=== PATIENT | female | born 1980 | race African-American/Black ===

== ENCOUNTER 2018-03-25 01:03 | Emergency (ER) | payer SELFPAY ==
[~2018-03-25] VITALS: Ht 160 cm; Wt 55.0 kg
[~2018-03-25 01:03] MED LIST: IBUP-1636
[2018-03-25 01:16] VITALS: BP 129/80
== END 2018-03-25 03:30 | disposition left against medical advice (07) ==
LOC: ER 01:46
DX: Z53.21 Procedure and treatment not carried out due to patient leaving prior to being seen by health care provider (principal)

== ENCOUNTER 2021-03-29 02:35 | Emergency (ER) | payer SELFPAY ==
[~2021-03-29] VITALS: Ht 160 cm; Wt 71.0 kg
[2021-03-29 05:05] LABS: *AMPHETAMINES SCREEN URINE NEGATIVE (NEGATIVE)
[2021-03-29 05:06] LABS: *BARBITURATES SCREEN URINE NEGATIVE (NEGATIVE); *BENZODIAZEPINES SCREEN URINE NEGATIVE (NEGATIVE); METHADONE URINE SCREEN NEGATIVE (NEGATIVE); OPIATES URINE SCREEN NEGATIVE (NEGATIVE); PHENCYCLIDINE URINE SCREEN NEGATIVE (NEGATIVE)
[2021-03-29 05:13] LABS: *COCAINE SCREEN URINE PRESUMTIVE POSITIVE (NEGATIVE); CANNABINOID URINE SCREEN PRESUMTIVE POSITIVE (NEGATIVE)
[2021-03-29 08:01] VITALS: BP 125/89
== END 2021-03-29 09:04 | disposition home or self-care (01) ==
LOC: ER 02:35
DX: F14.10 Cocaine abuse, uncomplicated (principal); F12.10 Cannabis abuse, uncomplicated; F15.10 Other stimulant abuse, uncomplicated; J45.909 Unspecified asthma, uncomplicated; R41.82 Altered mental status, unspecified; Z98.890 Other specified postprocedural states
CPT/HCPCS: 80305; 99283

== ENCOUNTER 2021-04-18 16:23 | Emergency (ER) | payer SELFPAY ==
[~2021-04-18] VITALS: Ht 152.4 cm; Wt 78.0 kg
[2021-04-18 23:26] LABS: CLARITY URINE CLOUDY (CLEAR); COLOR URINE DK YELLOW (YELLOW); KETONES URINE 1+ (NEGATIVE); LEUKOCYTE ESTERASE URINE NEGATIVE (NEGATIVE); NITRITE URINE NEGATIVE (NEGATIVE); OCCULT BLOOD URINE TRACE (NEGATIVE); PH URINE 5.5 (4.5-8.0); PROTEIN URINE 2+ (NEGATIVE); SPECIFIC GRAVITY URINE 1.031 (1.005-1.030)
[2021-04-19 00:38] LABS: BASOPHILS % 0.5 % (0.0-2.0); EOSINOPHILS % 1.3 % (0.0-5.0); HEMATOCRIT. 37.8 % (36.0-48.0); HEMOGLOBIN. 12.7 g/dL (12.0-16.0); LYMPHOCYTES % 23.4 % (20.0-50.0); MEAN CORPUSCULAR HEMOGLOBIN 33.3 pg (28.0-32.0); MEAN CORPUSCULAR VOLUME 98.8 fL (81.0-99.0); MEAN PLATELET VOLUME 7.6 fl (7.4-10.4); MONOCYTES % 10.1 % (2.0-8.0); NEUTROPHILS % 64.7 % (40.0-76.0); PLATELET 247 x1000/uL (130-400); RED BLOOD CELL COUNT 3.83 mill/uL (4.2-5.4); RED CELL DISTRIBUTION WIDTH 13.1 % (11.6-14.6)
[2021-04-19 00:44] LABS: CHLORIDE 108 mEq/L (98-107)
[2021-04-19 00:55] LABS: B-HCG QUANTITATIVE < 1 mIU/mL (<3)
[2021-04-19] MEDS ORDERED: CEPH500C2 MT (01:41)
[2021-04-19] MEDS ORDERED: IBUP-2028 MT (01:41)
[2021-04-19 01:55] VITALS: BP 115/65
[2021-04-22 07:08] LABS: NEISSERIA GONORRHOEAE NAA Negative (Negative)
== END 2021-04-19 02:00 | disposition home or self-care (01) ==
LOC: ER 16:23
DX: N39.0 Urinary tract infection, site not specified (principal); N83.202 Unspecified ovarian cyst, left side; J45.909 Unspecified asthma, uncomplicated; F12.10 Cannabis abuse, uncomplicated
CPT/HCPCS: 36415; 76830; 76856; 80053; 81003; 81025; 84702; 85025; 86850; 86900; 87491; 87591; 99284

== ENCOUNTER 2021-05-06 04:54 | Emergency (ER) | payer SELFPAY ==
[~2021-05-06] VITALS: Ht 160 cm; Wt 71.0 kg
[~2021-05-06 04:54] MED LIST changes: +CEPH500C2 MT; +IBUP-2028 MT
[2021-05-06 05:46] LABS: BASOPHILS % 0.5 % (0.0-2.0); HEMATOCRIT. 38.5 % (36.0-48.0); HEMOGLOBIN. 13.1 g/dL (12.0-16.0); LYMPHOCYTES % 29.1 % (20.0-50.0); MEAN CORPUSCULAR HEMOGLOBIN 33.5 pg (28.0-32.0); MEAN CORPUSCULAR VOLUME 98.7 fL (81.0-99.0); MEAN PLATELET VOLUME 7.7 fl (7.4-10.4); NEUTROPHILS % 57.4 % (40.0-76.0); PLATELET 255 x1000/uL (130-400); RED CELL DISTRIBUTION WIDTH 13.4 % (11.6-14.6)
[2021-05-06 05:53] LABS: CHLORIDE 108 mEq/L (98-107)
[2021-05-06 06:04] LABS: B-HCG QUANTITATIVE < 1 mIU/mL (<3)
[2021-05-06 07:03] LABS: CLARITY URINE CLEAR (CLEAR); COLOR URINE YELLOW (YELLOW); KETONES URINE NEGATIVE (NEGATIVE); LEUKOCYTE ESTERASE URINE NEGATIVE (NEGATIVE); NITRITE URINE NEGATIVE (NEGATIVE); OCCULT BLOOD URINE 3+ (NEGATIVE); PROTEIN URINE NEGATIVE (NEGATIVE); SPECIFIC GRAVITY URINE 1.005 (1.005-1.030); UROBILINOGEN URINE 0.2 E.U./dL (0.2-1.0)
[2021-05-06] MEDS ORDERED: IBUP-2028 PO (07:41)
[2021-05-06 07:50] VITALS: BP 100/55
== END 2021-05-06 09:10 | disposition home or self-care (01) ==
LOC: ER 04:54
DX: N93.8 Other specified abnormal uterine and vaginal bleeding (principal); J45.909 Unspecified asthma, uncomplicated; Z98.890 Other specified postprocedural states; Z79.899 Other long term (current) drug therapy
CPT/HCPCS: 36415; 76830; 76856; 80053; 81003; 81025; 84702; 85025; 86850; 86900; 99284

== ENCOUNTER 2021-07-21 17:30 | Emergency (ER) | payer OTHER ==
[~2021-07-21] VITALS: Ht 157.5 cm; Wt 79.0 kg
[~2021-07-21 17:30] MED LIST changes: +IBUP-2028 PO
[2021-07-21 18:32] VITALS: BP 120/62
[2021-07-22 00:43] LABS: CLARITY URINE CLEAR (CLEAR); COLOR URINE DARK YELLOW (YELLOW); KETONES URINE TRACE (NEGATIVE); LEUKOCYTE ESTERASE URINE TRACE (NEGATIVE); NITRITE URINE NEGATIVE (NEGATIVE); OCCULT BLOOD URINE NEGATIVE (NEGATIVE); PROTEIN URINE TRACE (NEGATIVE); SPECIFIC GRAVITY URINE 1.035 (1.005-1.030)
[2021-07-22] MEDS ORDERED: DOXY100C5 MT (00:56)
[2021-07-22] MEDS ORDERED: CEPH500C2 MT (00:56)
[2021-07-22] MEDS ORDERED: CEFTRIAXONE SODIUM 500 MG/VIAL IM NR (01:00)
== END 2021-07-22 01:01 | disposition home health service (06) ==
LOC: ER 17:30
DX: N39.0 Urinary tract infection, site not specified (principal); J45.909 Unspecified asthma, uncomplicated; Z20.2 Contact with and (suspected) exposure to infections with a predominantly sexual mode of transmission; Z98.890 Other specified postprocedural states
CPT/HCPCS: 76830; 76856; 81003; 81025; 87210; 87491; 87591; 99284

== ENCOUNTER 2021-08-14 10:54 | Emergency (ER) | payer SELFPAY ==
[~2021-08-14] VITALS: Ht 160 cm; Wt 72.0 kg
[~2021-08-14 10:54] MED LIST changes: +DOXY100C5 MT
[2021-08-14] MEDS ORDERED: SALI1ADH TP ×3 (12:15→16:54)
[2021-08-14] MEDS ORDERED: IBUPROFEN 600MG TABLET PO ONE (12:30)
[2021-08-14] MEDS ORDERED: LIDOCAINE HCL 1% 20ML VIAL (Pyxis) INJ INFIL ONE (14:45)
[2021-08-14] MEDS: CEFTRIAXONE SODIUM 500 MG/VIAL IM ONE ×2 (16:38→17:18)
[2021-08-14] MEDS ORDERED: DOXY100C5 MT (16:54)
[2021-08-14 17:54] VITALS: BP 147/85
== END 2021-08-14 17:55 | disposition home or self-care (01) ==
LOC: ER 11:13
DX: N89.8 Other specified noninflammatory disorders of vagina (principal); J45.909 Unspecified asthma, uncomplicated; Z98.890 Other specified postprocedural states; Z79.899 Other long term (current) drug therapy
CPT/HCPCS: 87210; 99283; J0696; J3490

== ENCOUNTER 2021-09-09 23:26 | Emergency (ER) | payer SELFPAY ==
[~2021-09-09] VITALS: Ht 160 cm; Wt 71.0 kg
[~2021-09-09 23:26] MED LIST changes: +SALI1ADH TP
[2021-09-09] MEDS ORDERED: ACETAMINOPHEN 325MG TABLET PO ONE (23:45)
[2021-09-10 00:54] VITALS: BP 127/76
== END 2021-09-10 00:57 | disposition home or self-care (01) ==
LOC: ER 23:26
DX: B07.0 Plantar wart (principal); M79.672 Pain in left foot; J45.909 Unspecified asthma, uncomplicated; Z59.00 Homelessness unspecified; Z98.890 Other specified postprocedural states
CPT/HCPCS: 99282

== ENCOUNTER 2021-09-14 02:32 | Emergency (ER) | payer SELFPAY ==
[~2021-09-14] VITALS: Ht 160 cm; Wt 61.5 kg
[2021-09-14] MEDS ORDERED: ACETAMINOPHEN 325MG TABLET PO SCH (03:04)
[2021-09-14] MEDS ORDERED: ONDANSETRON 4MG ODT PO SCH (03:04)
[2021-09-14] MEDS ORDERED: IBUP-2029 PO (03:10)
[2021-09-14 06:13] VITALS: BP 106/74
== END 2021-09-14 03:30 | disposition home or self-care (01) ==
LOC: ER 02:32
DX: M25.542 Pain in joints of left hand (principal); M25.541 Pain in joints of right hand; M25.572 Pain in left ankle and joints of left foot; M25.571 Pain in right ankle and joints of right foot; J45.909 Unspecified asthma, uncomplicated; Z59.00 Homelessness unspecified; Z98.890 Other specified postprocedural states
CPT/HCPCS: 99281

== ENCOUNTER 2021-10-18 23:36 | Emergency (ER) | payer OTHER ==
[~2021-10-18] VITALS: Ht 160 cm; Wt 63.9 kg
[~2021-10-18 23:36] MED LIST changes: +IBUP-2029 PO
[2021-10-19] MEDS ORDERED: IBUP-2030 MT (01:08)
[2021-10-19] MEDS ORDERED: IBUPROFEN 800MG TABLET PO ONE (01:15)
[2021-10-19 01:25] VITALS: BP 135/81
== END 2021-10-19 01:31 | disposition home or self-care (01) ==
LOC: ER 23:36
DX: M72.2 Plantar fascial fibromatosis (principal); M19.90 Unspecified osteoarthritis, unspecified site; J45.909 Unspecified asthma, uncomplicated; Z98.890 Other specified postprocedural states
CPT/HCPCS: 99282

== ENCOUNTER 2021-11-05 05:04 | Emergency (ER) | payer SELFPAY ==
[~2021-11-05] VITALS: Ht 160 cm; Wt 67.2 kg
[~2021-11-05 05:04] MED LIST changes: +IBUP-2030 MT
[2021-11-05 05:11] VITALS: BP 125/72
== END 2021-11-05 06:20 | disposition left against medical advice (07) ==
LOC: ER 05:04
DX: Z53.21 Procedure and treatment not carried out due to patient leaving prior to being seen by health care provider (principal)
CPT/HCPCS: 99281

== ENCOUNTER 2021-12-27 20:59 | Emergency (ER) | payer OTHER ==
[~2021-12-27] VITALS: Ht 160 cm; Wt 66.3 kg
[2021-12-27 21:05] VITALS: BP 92/51
== END 2021-12-27 22:30 | disposition left against medical advice (07) ==
LOC: ER 20:59
DX: Z53.21 Procedure and treatment not carried out due to patient leaving prior to being seen by health care provider (principal)

== ENCOUNTER 2022-01-05 04:25 | Emergency (ER) | payer OTHER ==
[~2022-01-05] VITALS: Ht 160 cm; Wt 66.6 kg
[2022-01-05 04:27] VITALS: BP 138/77
[2022-01-05] MEDS ORDERED: OMEP40CA20 MT (07:55)
[2022-01-05] MEDS ORDERED: MAGNESIUM/ALUMINUM HYDROXIDE/SIMETHICONE 30ML UDC PO ONE (08:00)
== END 2022-01-05 08:17 | disposition home or self-care (01) ==
LOC: ER 05:02
DX: R10.13 Epigastric pain (principal); J45.909 Unspecified asthma, uncomplicated; M19.90 Unspecified osteoarthritis, unspecified site; Z98.890 Other specified postprocedural states
CPT/HCPCS: 99282

== ENCOUNTER 2022-07-01 15:28 | Emergency (ER) | payer SELFPAY ==
[~2022-07-01 15:28] MED LIST changes: +OMEP40CA20 MT
== END 2022-07-01 16:16 | disposition left against medical advice (07) ==
LOC: ER 15:28
DX: Z53.21 Procedure and treatment not carried out due to patient leaving prior to being seen by health care provider (principal)

== ENCOUNTER 2023-03-10 20:09 | Emergency (ER) | payer SELFPAY ==
[~2023-03-10] VITALS: Ht 160 cm; Wt 67.0 kg
[~2023-03-10 20:09] MED LIST changes: +ACET-2708 PO; +GUAI-453 MT
[2023-03-10 20:12] VITALS: BP 136/84; PULSE 78; RESP 18; TEMP 98.2; O2SAT 95
== END 2023-03-10 20:37 | disposition home or self-care (01) ==
LOC: ER 20:09
DX: R68.89 Other general symptoms and signs (principal); J45.909 Unspecified asthma, uncomplicated; Z98.890 Other specified postprocedural states; Z90.710 Acquired absence of both cervix and uterus; Z79.899 Other long term (current) drug therapy
CPT/HCPCS: 99281

== ENCOUNTER 2023-03-22 01:39 | Emergency (ER) | payer SELFPAY ==
[~2023-03-22] VITALS: Ht 160 cm; Wt 62.4 kg
[2023-03-22 01:50] VITALS: BP 142/90; PULSE 84; TEMP 97.9; O2SAT 100
== END 2023-03-22 03:00 | disposition home or self-care (01) ==
LOC: ER 02:06
DX: R42 Dizziness and giddiness (principal); J45.909 Unspecified asthma, uncomplicated; Z98.890 Other specified postprocedural states; Z79.899 Other long term (current) drug therapy
CPT/HCPCS: 99281

== ENCOUNTER 2023-03-22 08:54 | Emergency (ER) | payer SELFPAY ==
[~2023-03-22] VITALS: Ht 165.1 cm; Wt 73.0 kg
[2023-03-22 09:04] VITALS: BP 128/81; TEMP 98.3; O2SAT 99
[2023-03-22 09:11] VITALS: PULSE 61
[2023-03-22] MEDS ORDERED: DOXYCYCLINE HYCLATE 100MG CAPSULE PO ONE (10:15)
[2023-03-22] MEDS ORDERED: CEFTRIAXONE SODIUM 250 MG/VIAL IM ONE (10:15)
== END 2023-03-22 19:29 | disposition home or self-care (01) ==
LOC: ER 08:54
DX: A64 Unspecified sexually transmitted disease (principal); J45.909 Unspecified asthma, uncomplicated; Z98.890 Other specified postprocedural states; Z90.710 Acquired absence of both cervix and uterus
CPT/HCPCS: 99283; 96372; J0696

== ENCOUNTER 2023-09-29 02:56 | Emergency (ER) | payer SELFPAY ==
[~2023-09-29] VITALS: Ht 160 cm; Wt 68.0 kg
[2023-09-29 03:11] VITALS: BP 147/100; PULSE 99; RESP 15; TEMP 97.7; O2SAT 98
[2023-09-29] MEDS ORDERED: IBUPROFEN 400MG TABLET PO ONE (06:30)
== END 2023-09-29 09:04 | disposition home or self-care (01) ==
LOC: ER 03:40
DX: M79.18 Myalgia, other site (principal); J45.909 Unspecified asthma, uncomplicated; Z98.890 Other specified postprocedural states
CPT/HCPCS: 99282